=== PATIENT | female | born 1945 | race Hispanic/Latino ===

== ENCOUNTER 2021-09-11 05:55 | Observation (INO) | payer MEDICARE ==
[2021-09-06 12:03] LABS: BASOPHILS % (AUTO) 0.7 % (0.0-5.0); EOSINOPHILS % (AUTO) 5.3 % (0.0-8.0); HEMATOCRIT 40.8 % (36-48); MEAN CORPUSCULAR HEMOGLOBIN 28.3 pg (27.0-33.0); MEAN CORPUSCULAR HGB CONC 32.4 g/dL (32.0-36.0); MEAN CORPUSCULAR VOLUME 87.4 fL (79-99); MONOCYTES % (AUTO) 8.6 % (3.0-13.0); PLATELET COUNT (AUTO) 224 K/uL (130-400); RED BLOOD CELL COUNT(AUTO) 4.67 MIL/uL (4.00-5.50); RED CELL DISTRIBUTION WIDTH 13.1 % (11.0-15.5); WHITE BLOOD COUNT (AUTO) 5.7 K/uL (4.8-10.8)
[2021-09-06 12:08] LABS: CREATININE 0.9 mg/dL (0.5-1.5); POTASSIUM 4.3 mmol/L (3.5-5.1)
[2021-09-06 12:09] LABS: APPEARANCE,URINE Cloudy (CLEAR); BILIRUBIN,URINE Negative (NEGATIVE); COLOR,URINE Yellow (YELLOW); GLUCOSE, URINE (UA) Negative (NEGATIVE); KETONES,URINE Negative (NEGATIVE); LEUKOCYTE ESTERASE ,URINE Small (NEGATIVE); NITRATE,URINE Negative (NEGATIVE); OCCULT BLOOD,URINE Negative (NEGATIVE); PROTEIN,URINE Negative (NEGATIVE); UROBILINOGEN,URINE 0.2 mg/dL (0.2-1.0)
[2021-09-06 12:14] LABS: INR 1.02 (0.85-1.15); PROTHROMBIN TIME 11.1 SEC (9.6-11.6)
[2021-09-06 12:16] LABS: PARTIAL THROMBOPLASTIN TIME 26.8 SEC (26.3-35.5)
[2021-09-06 12:18] LABS: BACTERIA,URINE Rare /HPF (None Seen); RBC,URINE 0-1 /HPF (0-1); SQUAMOUS EPITHELIAL CELL,UR Rare /HPF (0-2); WBC,URINE 0-1 /HPF (0-1)
[2021-09-10 11:07] VITALS: BP 140/76
[~2021-09-11] VITALS: Ht 154.9 cm; Wt 73.3 kg
[2021-09-11] VITALS (26 sets, daily range): BP systolic 125–158; BP diastolic 52–75
[~2021-09-11 05:55] MED LIST: AMLO2.5T4 PO; ASPI-1443 PO; ATOR40TA71 PO; CHOL-34 PO; ISOS30TA92 PO; MELO-106 PO; METO-408 PO; MORINGA PO; OMEG-209 PO; TURM500C9 PO; ZINC220T4 PO
[2021-09-11] MEDS ORDERED: 0.9%NACL 1000ML 1,000 ML IV ONE (06:18)
[2021-09-11] MEDS ORDERED: LIDOCAINE HCL 400MG/20ML VIAL ONE (07:11)
[2021-09-11] MEDS ORDERED: IOHEXOL-350 50ML VIAL IV ONE (07:11)
[2021-09-11] MEDS ORDERED: NITROGLYCERIN 50MG VIAL IV ONE (07:11)
[2021-09-11] MEDS ORDERED: IOHEXOL 350 MG/ML 100ML INFUS..BTL IV ONE (07:11)
[2021-09-11] MEDS ORDERED: BIVALIRUDIN 250 MG/VIAL IV ONE (07:11)
[2021-09-11] MEDS ORDERED: HEPARIN 10,000 UNIT/10ML (1,000 UNIT/ML) VIAL ONE ×2 (07:11→07:44)
[2021-09-11] MEDS ORDERED: ASPIRIN 325MG EC TAB PO ONE (08:30)
[2021-09-11] MEDS ORDERED: CLOPIDOGREL 300MG TAB ONE (08:30)
[2021-09-11] MEDS ORDERED: ACETAMINOPHEN WITH CODEINE 1 TAB TAB PO PRN ×2 (09:00)
[2021-09-11] MEDS ORDERED: MORPHINE 5 MG/ML VIAL (5MG OR GREATER DOSE) IVP SCH ×3 (09:00→10:00)
[2021-09-11] MEDS ORDERED: NITROGLYCERIN 50MG/D5W 250ML 1 BOT IV PRN (09:00)
[2021-09-11] MEDS ORDERED: 0.9%NACL 1000ML 1,000 ML IV SCH (09:00)
[2021-09-11] MEDS ORDERED: ONDANSETRON 4MG INJ IVP PRN (09:00)
[2021-09-11] MEDS ORDERED: ONDANSETRON 4MG INJ IVP SCH (09:00)
[2021-09-11] MEDS ORDERED: ATROPINE 1MG SYG IVP ONE (09:10)
[2021-09-11 13:26] LABS: HEMATOCRIT 37.6 % (36-48)
[2021-09-11] MEDS ORDERED: ATORVASTATIN 40 MG TABLET PO SCH (21:00)
[2021-09-11] MEDS ORDERED: AMLODIPINE 2.5 MG TAB PO SCH (21:00)
[2021-09-11] MEDS ORDERED: ISOSORBIDE MONO 30MG SR TAB PO SCH (21:00)
[2021-09-11] MEDS: MELOXICAM 7.5 MG TABLET PO SCH (21:07)
[2021-09-12] VITALS (12 sets, daily range): BP systolic 108–156; BP diastolic 43–75
[2021-09-12] MEDS: MAG/ALUM/SIMETH 30 ML UDCUP ONE ×2 (01:10→01:12)
[2021-09-12] MEDS ORDERED: MAG/ALUM/SIMETH 30 ML UDCUP PO PRN (01:30)
[2021-09-12 04:16] LABS: BASOPHILS % (AUTO) 0.3 % (0.0-5.0); EOSINOPHILS % (AUTO) 3.8 % (0.0-8.0); HEMATOCRIT 36.9 % (36-48); LYMPHOCYTES % (AUTO) 15.2 % (21.0-51.0); MEAN CORPUSCULAR HEMOGLOBIN 27.9 pg (27.0-33.0); MEAN CORPUSCULAR HGB CONC 31.7 g/dL (32.0-36.0); MEAN CORPUSCULAR VOLUME 87.9 fL (79-99); MONOCYTES % (AUTO) 7.4 % (3.0-13.0); PLATELET COUNT (AUTO) 229 K/uL (130-400)
[2021-09-12 04:29] LABS: ALBUMIN 3.3 g/dL (3.5-5.0); BILIRUBIN,TOTAL 0.8 mg/dL (0.2-1.0); POTASSIUM 4.1 mmol/L (3.5-5.1)
[2021-09-12] MEDS ORDERED: HEPARIN 10,000 UNIT/10ML (1,000 UNIT/ML) VIAL ONE (08:32)
[2021-09-12] MEDS ORDERED: LIDOCAINE HCL 400MG/20ML VIAL ONE ×2 (08:44→08:46)
[2021-09-12] MEDS ORDERED: IOHEXOL 350 MG/ML 100ML INFUS..BTL IV ONE (08:46)
[2021-09-12] MEDS ORDERED: HEPARIN 1,000 UNIT VIAL ONE (08:46)
[2021-09-12] MEDS ORDERED: NITROGLYCERIN 50MG VIAL IV ONE (08:46)
[2021-09-12] MEDS ORDERED: IOHEXOL-350 50ML VIAL IV ONE (08:46)
[2021-09-12] MEDS ORDERED: CLOPIDOGREL 75MG TAB PO SCH (09:00)
[2021-09-12] MEDS ORDERED: METOPROLOL SUCCINATE 50 MG TAB.SR.24H PO SCH (09:00)
[2021-09-12] MEDS ORDERED: 0.9%NACL 10ML VIAL IVP SCH (09:00)
[2021-09-12] MEDS ORDERED: MORINGA PO SCH (09:00)
[2021-09-12] MEDS ORDERED: ASPIRIN 81 MG EC TAB PO SCH (09:00)
[2021-09-12] MEDS ORDERED: FISH OIL 1000 MG/CAP PO SCH (09:00)
[2021-09-12] MEDS ORDERED: (Cholecalciferol (Vitamin D3) (Vitamin D3) 25 MCG) PO SCH (09:00)
[2021-09-12] MEDS ORDERED: (Zinc Sulfate (Zinc) 50 MG) PO SCH (09:00)
[2021-09-12] MEDS: MELOXICAM 7.5 MG TABLET PO SCH (14:23)
[2021-09-12] MEDS ORDERED: CLOP75TA14 PO (17:36)
== END 2021-09-12 19:00 | disposition home or self-care (01) ==
LOC: DAH 05:55 → DAHIP 05:56 → 4DH 18:18
PROVIDERS: ADMIT Internal Medicine; ATTEND Internal Medicine
DX: I25.119 Atherosclerotic heart disease of native coronary artery with unspecified angina pectoris (principal); I10 Essential (primary) hypertension; R07.89 Other chest pain; E66.9 Obesity, unspecified; E78.5 Hyperlipidemia, unspecified; Z68.30 Body mass index [BMI] 30.0-30.9, adult; Z79.02 Long term (current) use of antithrombotics/antiplatelets; Z90.710 Acquired absence of both cervix and uterus
CPT/HCPCS: 36415 ×3; 71045; 80048; 80053; 81001; 82948; 84484; 85014; 85018; 85025 ×2; 85610; 85730 ×3; 92920; 93005 ×2; 93454; 93458; 96360; 96361; A4215; A4216; A4222; A4223 ×3; A4554; A4606; A4615; A4657; A4663; A6260; A6402; C1725 ×3; C1760; C1769 ×2; C1874; C1887 ×2; C1894 ×3; G0378 ×29; J0461; J1644 ×5; J3490 ×4; J7030; Q9965 ×3; Q9967 ×4; C9600; J0583